=== PATIENT | female | born 1975 | race Caucasian/White ===

== ENCOUNTER → 2024-03-03 | Outpatient (CLI) | payer MEDICAID | END | disposition home or self-care (01) | LOC: RADMN 09:53 | PROVIDERS: ATTEND Nurse Practitioner Family | DX: R06.89 Other abnormalities of breathing (principal); M47.814 Spondylosis without myelopathy or radiculopathy, thoracic region; Z90.49 Acquired absence of other specified parts of digestive tract | CPT/HCPCS: 71046 ==